=== PATIENT | male | born 1970 | race Caucasian/White ===

== ENCOUNTER 2017-07-25 18:08 | Emergency (ER) | payer SELFPAY ==
[~2017-07-25] VITALS: Ht 175.3 cm; Wt 75.0 kg
[2017-07-25 18:33] LABS: GLUCOSE,POINT OF CARE 104 MG/DL (70-110)
[2017-07-25] MEDS ORDERED: SODIUM CHLORIDE 0.9% 2,000 ML IV ONE (19:30)
[2017-07-25 19:33] LABS: BASOPHILS # (AUTO) 0.03 K/uL (0.00-0.20); BASOPHILS % (AUTO) 0.3 % (0.0-2.0); EOSINOPHILS # (AUTO) 0.03 K/uL (0.00-0.70); EOSINOPHILS % (AUTO) 0.32 % (1.0-6.0); HEMATOCRIT 48.7 % (41-53); HEMOGLOBIN 16.4 g/dL (13.5-17.5); LYMPHOCYTES # (AUTO) 1.7 K/uL (1.0-4.8); LYMPHOCYTES % (AUTO) 17.6 % (22.0-44.0); MEAN CORPUSCULAR HEMOGLOBIN 31.3 pg (26.0-34.0); MEAN CORPUSCULAR HGB CONC 33.7 G/dL (31.0-37.0); MEAN CORPUSCULAR VOLUME 93 fL (80-100); MONOCYTES # (AUTO) 0.8 K/uL (0.1-1.0); MONOCYTES % (AUTO) 8.8 % (2.0-9.0); NEUTROPHILS # (AUTO) 6.9 K/uL (1.8-7.7); PLATELET COUNT (AUTO) 241 K/uL (150-450); RED BLOOD CELL COUNT(AUTO) 5.24 MIL/uL (4.50-5.90); RED CELL DISTRIBUTION WIDTH 13.2 % (11.5-14.5)
[2017-07-25 19:44] LABS: ANION GAP 14 mmol/L (8-16); CALCIUM, TOTAL 10.5 mg/dL (8.8-10.5); CARBON DIOXIDE 22 mmol/L (22-29); CHLORIDE 97 mmol/L (98-107); CREATININE 1.22 mg/dL (0.60-1.30); GLOMERULAR FILTR. RATE CALC > 60 mL/min (>60); GLUCOSE,RANDOM 113 mg/dL (70-110); INR 1.1 (0.9-1.1); PROTHROMBIN TIME 11.9 SEC (9.4-11.6); SODIUM SERUM 133 mmol/L (136-145); UREA NITROGEN, BLOOD 21 mg/dL (7-18)
[2017-07-25 20:09] LABS: ALANINE AMINOTRANSFERASE 29 U/L (12-78); ALBUMIN 4.3 g/dL (3.4-5.0); ALKALINE PHOSPHATASE 78 U/L (46-116); ASPARTATE AMINOTRANSFERASE 17 U/L (15-37); CREATINE KINASE MB 1.4 ng/mL (0-5); CREATINE KINASE, TOTAL 219 U/L (39-308)
[2017-07-25] MEDS ORDERED: SODIUM CHLORIDE 0.9% 1,000 ML IV ONE ×2 (23:30)
[2017-07-26] MEDS ORDERED: LevETIRAcetam 500 MG in DEXTROSE 5%-WATER 100 ML IV ONE (00:30)
[2017-07-26 01:00] VITALS: BP 127/89
== END 2017-07-26 01:56 | disposition short-term general hospital (02) ==
LOC: EMS 18:12
DX: I62.9 Nontraumatic intracranial hemorrhage, unspecified (principal); C71.9 Malignant neoplasm of brain, unspecified; R41.82 Altered mental status, unspecified; F17.210 Nicotine dependence, cigarettes, uncomplicated
CPT/HCPCS: 36415; 70450; 71045; 80053; 82550; 82553; 82962; 84484; 85025; 85610; 85730; 93005; 96361; 96365; 99291; G0480; J0712; J7030; J7060